=== PATIENT | male | born 1960 ===

== ENCOUNTER 2016-06-07 04:32 | Inpatient (IN) | payer OTHER ==
[2016-06-07] VITALS (37 sets, daily range): BP systolic 113–139; RESP 10–20; TEMP 97.6–97.9; BMI 29.5
[~2016-06-07] VITALS: Ht 180.3 cm; Wt 96.1 kg
[2016-06-07] MEDS ORDERED: SALINE FLUSH 10 ML FLUSH PRN (06:45)
[2016-06-07] MEDS ORDERED: LIDOCAINE 2% 20 ML SUBQ ONE ×2 (06:45→07:10)
[2016-06-07] MEDS ORDERED: DOCUSATE SOD 100 MG CAP PO PRN (06:45)
[2016-06-07] MEDS ORDERED: ATROPINE 1 MG/10 ML SYRINGE IV PRN (07:10)
[2016-06-07] MEDS ORDERED: MORPHINE 2 MG/ML SYR IV ONE (07:10)
[2016-06-07] MEDS ORDERED: MIDAZOLAM 2 MG/2 ML INJ IV PRN (07:10)
[2016-06-07] MEDS ORDERED: MIDAZOLAM 2 MG/2 ML INJ IV ONE (07:10)
[2016-06-07] MEDS: **NOTE TO NURSE XX SCH ×2 (07:15→18:48)
[2016-06-07] MEDS: SALINE FLUSH 10 ML FLUSH SCH ×2 (09:54→20:21)
[2016-06-07] MEDS: TICAGRELOR 90 MG TAB PO SCH ×2 (11:29→20:21)
[2016-06-07] MEDS: ASPIRIN 81 MG CHEW TAB PO SCH (11:29)
[2016-06-07] MEDS ORDERED: Atorvastatin 40 MG TAB PO SCH (21:00)
[2016-06-07] MEDS ORDERED: LIDOCAINE 2% 20 ML ONE (21:15)
[2016-06-07] MEDS ORDERED: TICAGRELOR 90 MG TAB ONE (21:15)
[2016-06-07] MEDS ORDERED: FENTANYL 100 MCG/2 ML AMP ONE (21:51)
[2016-06-07] MEDS ORDERED: MIDAZOLAM 2 MG/2 ML INJ ONE (21:51)
[2016-06-08] VITALS (13 sets, daily range): BP systolic 120–141; RESP 11–16; TEMP 97.7–97.9
[2016-06-08] MEDS ORDERED: SODIUM CHLORIDE 0.9% FLUSH BAG 500 ML IV SCH (06:00)
[2016-06-08] MEDS ORDERED: ACETAMINOPHEN 325 MG TAB PO PRN (06:35)
[2016-06-08] MEDS ORDERED: ACETAMINOPHEN 325 MG TAB ONE (06:40)
[2016-06-08] MEDS: ASPIRIN 81 MG CHEW TAB PO SCH (08:45)
[2016-06-08] MEDS: SALINE FLUSH 10 ML FLUSH SCH (08:45)
[2016-06-08] MEDS: TICAGRELOR 90 MG TAB PO SCH (08:45)
== END 2016-06-08 13:18 | disposition home or self-care (01) | DRG 247 ==
LOC: ENRESERVTM → ENRESERVDT → EDSTATUS 04:32 → SDS 05:43 → ENPENDDIS 05:43 → CCU 06:27
PROVIDERS: ADMIT Specialist; ATTEND Specialist
PROC: 027035Z Dilation of Coronary Artery, One Artery with Two Drug-eluting Intraluminal Devices, Percutaneous Approach (ICD-10-PCS; principal; 2016-06-07)
PROC: 4A023N7 Measurement of Cardiac Sampling and Pressure, Left Heart, Percutaneous Approach (ICD-10-PCS; 2016-06-07)
PROC: B2111ZZ Fluoroscopy of Multiple Coronary Arteries using Low Osmolar Contrast (ICD-10-PCS; 2016-06-07)
PROC: B2151ZZ Fluoroscopy of Left Heart using Low Osmolar Contrast (ICD-10-PCS; 2016-06-07)
CPT/HCPCS: 80048; 80053; 80061; 83735; 84484; 85025; 85347; 85610; 85730; 93005; 93458